=== PATIENT | male | born 1940 | race Caucasian/White ===

== ENCOUNTER 2016-10-07 11:09 | Outpatient (CLI) | payer MEDICARE ==
--- NOTE | 2016-10-07 18:35 | ULT ---
LEFT LOWER EXTREMITY VENOUS ULTRASOUND: Date: 10/07/16 Ultrasonography of the left lower extremity was performed. All deep veins were freely compressible f rom groin to ankle. There was normal Doppler response to augmentation maneuvers. No echogenic clot w as seen. There was a hypoechoic well-defined mass seen in the soft tissues of the calf. It did not appear to have significant blood flow within it. I do not know if this is a hematoma or a true mass. Other jack dies, such as MRI, might yield a little additional information. IMPRESSION: 6.3 x 3.5 cm hypoechoic mixed echo mass in the left calf. It is rather oblong in shape. Its etiology is unclear. MRI might be considered. There is no evidence of deep venous thrombosis. POS: HOME
== END 2016-10-07 11:10 | disposition home or self-care (01) ==
LOC: BURULT 11:09
PROVIDERS: ATTEND Family Medicine
DX: M79.662 Pain in left lower leg (principal); R22.42 Localized swelling, mass and lump, left lower limb

== ENCOUNTER 2016-11-10 14:30 | Outpatient (CLI) | payer MEDICARE | END 2016-11-10 14:31 | disposition home or self-care (01) | LOC: BURLAB 14:30 | PROVIDERS: ATTEND Urology | DX: E29.1 Testicular hypofunction (principal) | CPT/HCPCS: 36415; 84403 ==

== ENCOUNTER 2016-12-27 14:34 | Outpatient (CLI) | payer MEDICARE | END 2016-12-27 14:35 | disposition home or self-care (01) | LOC: BURLAB 14:34 | PROVIDERS: ATTEND Urology | DX: C61 Malignant neoplasm of prostate (principal) | CPT/HCPCS: 36415; 84153 ==

== ENCOUNTER 2017-01-12 14:10 | Outpatient (CLI) | payer MEDICARE ==
[2017-01-12 14:41] LABS: ALT (SGPT) 20 U/L (8-55); AST (SGOT) 18 U/L (5-34); Albumin 4.4 g/dL (3.4-4.8); Alkaline Phosphatase 90 U/L (40-150); Anion Gap 15 mmol/L (10-20); BUN (Urea Nitrogen) 21 mg/dL (8.4-25.7); Bilirubin, Total 0.6 mg/dL (0.2-1.2); Calc. Creatinine Clearance 0 mL/min (70-130); Carbon Dioxide 23 mmol/L (23-31); Cardiac Risk 3.2 (Less than 4.5); Chloride 106 mmol/L (98-107); Cholesterol 132 mg/dl (< 200 Desired); Estimated GFR-MDRD 70; Globulin 2.9 g/dL (2.4-3.5); Glucose 86 mg/dL (83-110); HDL Cholesterol 41 mg/dL (>60 Neg Risk); LDL Cholesterol, Calculated 61 mg/dL; Protein, Total 7.3 g/dL (5.8-8.1); Sodium 140 mmol/L (136-145); Triglycerides 152 mg/dL (Less than 150)
[2017-01-12 14:50] LABS: #Lymphocytes 1.8 thou/uL (1.20-3.40); #Monocytes 0.6 thou/uL (0.11-0.59); #Neutrophils 2.4 thou/uL (1.40-6.50); %Basophils 0.8 % (0.0-1.0); %Eosinophils 0.5 % (0.0-10.0); %Monocytes 11.9 % (0.0-10.0); %Neutrophils 49.8 % (42.0-75.0); Hemoglobin 16.3 g/dL (14.0-18.0); Large Platelets SLIGHT; MDiff Complete? YES; Mean Corpuscular HGB CONC 35.2 g/dL (32.0-36.0); Mean Corpuscular Hemoglobin 31.2 pg (27.0-31.0); Mean Corpuscular Volume 88.5 fl (80.0-94.0); Mean Platelet Volume 11.4 fL (7.4-10.4); PLT Morphology Comment PATIENT HX OF SLIGHTLY LOW PLATELET COUNTS. BLOOD SMEAR CONFIRMS PLT COUNT; Platelet Count 110 thou/uL (130-400); Red Blood Cell (RBC) Count 5.24 mill/uL (4.70-6.10); White Blood Cell (WBC) Count 4.9 thou/uL (4.8-10.8)
== END 2017-01-12 14:11 | disposition home or self-care (01) ==
LOC: HPCALD 14:10
PROVIDERS: ATTEND Family Medicine
DX: E11.9 Type 2 diabetes mellitus without complications (principal); I10 Essential (primary) hypertension; E78.5 Hyperlipidemia, unspecified
CPT/HCPCS: 36415; 80053; 80061; 83036; 85025

== ENCOUNTER 2017-01-13 09:38 | Outpatient (CLI) | payer MEDICARE ==
[2017-01-13 10:34] LABS: Free T4 (Free Thyroxine) 1.02 ng/dL (0.70-1.48); Thyroid Stimulating Hormone 1.943 uIU/mL (0.35-4.94)
== END 2017-01-13 09:39 | disposition home or self-care (01) ==
LOC: HPCALD 09:38
PROVIDERS: ATTEND Family Medicine
DX: R53.83 Other fatigue (principal)
CPT/HCPCS: 84439; 84443